=== PATIENT | female | born 1960 | race Caucasian/White ===

== ENCOUNTER 2022-07-07 14:45 | Emergency (ER) | payer BC, SELFPAY ==
[2022-07-07 14:52] VITALS: BP 127/67; PULSE 84; RESP 16; TEMP 37.5; O2SAT 99
== END 2022-07-07 16:32 | disposition left against medical advice (07) ==
PROVIDERS: Emergency Provider Registered Nurse
DX: Z53.21 Procedure and treatment not carried out due to patient leaving prior to being seen by health care provider (principal)
CPT/HCPCS: 99199